=== PATIENT | male | born 1980 | race Caucasian/White ===

== ENCOUNTER 2018-04-26 14:02 | Emergency (ER) | payer OTHER ==
[~2018-04-26] VITALS: Ht 175.3 cm; Wt 62.7 kg
[~2018-04-26 14:02] MED LIST: KEFLEX500 MG PO; MOTRIN600 MG PO; PERCOCET 5/31 TABLET PO
[2018-04-26 15:55] VITALS: BP 149/81
== END 2018-04-26 15:55 | disposition left against medical advice (07) ==
LOC: EME 14:02
DX: S49.91XA Unspecified injury of right shoulder and upper arm, initial encounter (principal); Y09 Assault by unspecified means; Z53.21 Procedure and treatment not carried out due to patient leaving prior to being seen by health care provider